=== PATIENT | female | born 1965 | race Caucasian/White ===

== ENCOUNTER 2016-08-09 12:53 | Emergency (ER) | payer BC, OTHER ==
[2016-08-09 13:22] VITALS: BP 114/76
--- NOTE | 2016-08-09 16:09 | ER Document Report ---
ED Extremity Problem, Upper - General Chief Complaint: Shoulder Pain Stated Complaint: FALL/LEFT SHOULDER PAIN Time Seen by Provider: 08/09/16 15:54 Mode of Arrival: Ambulatory Information source: Patient Cannot obtain history due to: Unstable vital signs Notes: 51-year-old female presents to ED for complaint of shoulder and clavicle pain on the left side since Tuesday when she fell asleep on the toilet and fell off. Patient is on chronic pain management for degenerative disc disease arthritis and sciatic nerve problems. She is on fentanyl patch 100 mcg and states she took 15 mg of oxycodone while waiting in the waiting room. She also has a small lump on her left side of her head where she states she hit the wall when she fell. She is alert oriented states she has not had any results of consciousness. TRAVEL OUTSIDE OF THE [place] IN LAST 30 DAYS: No - HPI Patient complains to provider of: Left, Clavicle, Shoulder Onset: Other - Tuesday Recent injury: Yes Where: Home, Indoors Quality of pain: Achy, Sharp Severity of pain: Moderate, Persistent Pain Level: 4 Context: Fall Associated symptoms: Other - Fell asleep on the toilet and fell off Exacerbated by: Movement Relieved by: Nothing Similar symptoms previously: Yes Recently seen / treated by doctor: No - Related Data Allergies/Adverse Reactions: No Known Allergies Allergy (Unverified 08/09/16 13:22) Past Medical History - General Information source: Patient - Social History Smoking Status: Current Every Day Smoker Cigarette use (# per day): Yes - 1-1/2 packs per day Chew tobacco use (# tins/day): No Smoking Education Provided: Yes - Less than 2 minutes Frequency of alcohol use: None Drug Abuse: None Occupation: none Lives with: Family Family History: Arthritis, CAD, DM, Hyperlipidemia, Hypertension, Malignancy. denies: COPD, CVA, Thyroid Disfunction Patient has suicidal ideation: No Patient has homicidal ideation: No - Past Medical History Cardiac Medical History: Reports: Hx Hypertension Pulmonary Medical History: Reports: Hx Asthma, Hx Bronchitis, Hx COPD EENT Medical History: Reports: None Neurological Medical History: Reports: None Endocrine Medical History: Reports: Hx Diabetes Mellitus Type 2 Renal/ Medical History: Reports: None Malignancy Medical History: Reports: None GI Medical History: Reports: None Musculoskeltal Medical History: Reports Hx Arthritis, Reports Hx Musculoskeletal Deformity, Reports Hx Musculoskeletal Trauma Skin Medical History: Reports None Psychiatric Medical History: Reports: Hx Anxiety Traumatic Medical History: Reports: Hx Fractures - Right ankle and fingers Infectious Medical History: Reports: None Past Surgical History: Reports: Hx Section Review of Systems - Review of Systems Constitutional: No symptoms reported EENT: No symptoms reported Cardiovascular: No symptoms reported Respiratory: No symptoms reported Gastrointestinal: No symptoms reported Genitourinary: No symptoms reported Female Genitourinary: No symptoms reported Musculoskeletal: Joint pain, Joint swelling, Muscle pain, Other - Swelling to the area of the lateral left clavicle Skin: Other - Pain and bruising to the left clavicle area Hematologic/Lymphatic: No symptoms reported Neurological/Psychological: No symptoms reported -: Yes All other systems reviewed and negative Physical Exam - Vital signs Vitals: Temp Pulse Resp BP Pulse Ox 97.8 F 110 H 18 114/76 97 08/09/16 13:22 08/09/16 13:22 08/09/16 13:22 08/09/16 13:22 08/09/16 13:22 Interpretation: Normal - General General appearance: Appears well, Alert - HEENT Head: Tenderness - Nontender not to the left scrotal Eyes: Normal Pupils: PERRL Visual warren normal: Yes Ears: Normal External canal: Normal Tympanic membrane: Normal Sinus: Normal Nasal: Normal Mouth/Lips: Normal Mucous membranes: Normal Pharynx: Normal Neck: Normal - Murmur - Respiratory Respiratory status: No respiratory distress Chest status: Tender, Pain on movement, Pain with cough, Other - Left clavicle area pain and swelling Breath sounds: Normal Chest palpation: Normal - Cardiovascular Rhythm: Regular Heart sounds: Normal auscultation Murmur: No - Abdominal Inspection: Normal Distension: No distension Bowel sounds: Normal Tenderness: Nontender Organomegaly: No organomegaly - Back Back: Normal, Nontender - Extremities General upper extremity: Normal color, Normal temperature General lower extremity: Normal inspection, Nontender, Normal color, Normal ROM , Normal temperature, Normal weight bearing. No: Anival's sign Shoulder: Tender, Limited ROM - due to pain - Neurological Neuro grossly intact: Yes Cognition: Normal Orientation: AAOx4 [place] Coma Scale Eye Opening: Spontaneous [place] Coma Scale Verbal: Oriented [place] Coma Scale Motor: Obeys Commands [place] Coma Scale Total: 15 Speech: Normal Motor strength normal: LUE, RUE, LLE, RLE Sensory: Normal - Psychological Associated symptoms: Normal affect, Normal mood - Skin Skin Temperature: Warm Skin Moisture: Dry Skin Color: Normal, Ecchymosis Irregularity with: Swelling, Tenderness Course - Vital Signs Vital signs: Temp Pulse Resp BP Pulse Ox 97.8 F 110 H 18 114/76 97 08/09/16 13:22 08/09/16 13:22 08/09/16 13:22 08/09/16 13:22 08/09/16 13:22 - Diagnostic Test Radiology reviewed: Image reviewed, Reports reviewed Procedures - Immobilization Left Shoulder Immobilizer type: Shoulder immobilizer Performed by: PCT Post-Proc Neuro Vasc Exam: Normal Alignment checked and good: Yes Discharge - Discharge Clinical Impression: Closed left clavicular fracture Qualifiers: Encounter type: initial encounter Clavicle location: shaft Fracture alignment: displaced Qualified Code(s): S42.022A - Displaced fracture of shaft of left clavicle, initial encounter for closed fracture Condition: Stable Disposition: HOME, SELF-CARE Additional Instructions: Fractured Clavicle You have a broken collarbone (clavicle). This usually heals in three to six weeks, depending on the age of the patient and the severity of the fracture. Even badly crooked collarbone fractures are usually not "set" or operated on, just protected until healing is complete. Usual initial treatment is rest and ice packs. A clavicle strap is placed for most collarbone fractures, but some do better with only a sling. The physician will match the treatment to your fracture. If a clavicle strap was fitted, keep it in place. It may be removed for bathing or for washing the strap after the first week. You may adjust the tightness of the strap with the Velcro strips. It should not be so tight that the hands swell or go numb. No heavy lifting, work requiring the arms to be above the head, or school P.E. until healing is complete! Call the doctor or return at once if pain or swelling become severe, or if numbness develops in either arm. Sling to be Used You are to use a sling. This is to rest the area, and to prevent it from hanging downward. Use this sling for at least 48 hours (or longer if so instructed by the doctor). Some types of splints will break if not supported by the sling, so the sling must be used as long as the splint. Ice can be placed inside the sling over the injured area. Once you remove the sling, you should not encounter pain when you use the arm and hand. If you do feel pain beneath the cast or splint, you must continue use of the sling. Continue with your current pain medication. Ice Packs Apply ice packs frequently against the painful area. Many different schedules are recommended, such as "20 minutes on, 20 minutes off" or "one hour ice, two hours rest." If you need to work, you may need to go longer between ice treatments. You should plan to have the area ice packed AT LEAST one fourth of the time. The ice should be applied over the wrap, tape, or splint, or over a layer of cloth -- not directly against the skin. Some ice bags have a built-in cloth and can be put directly on the skin. FOLLOW-UP CARE: If you have been referred to a physician for follow-up care, call the physician s office for an appointment as you were instructed or within the next two days. If you experience worsening or a significant change in your symptoms, notify the physician immediately or return to the Emergency Department at any time for re-evaluation. Follow up with your primary doctor tomorrow. Call your orthopedic doctor tomorrow to schedule a follow-up appointment. Referrals: GEOFF SANCHEZ, DO [Primary Care Provider] - Follow up as needed
--- NOTE | 2016-08-09 16:49 | RADIOLOGY REPORT (SQ) ---
EXAM DESCRIPTION: SHOULDER LEFT 2 OR MORE VIEWS COMPLETED DATE/TIME: 08/09/2016 4:33 pm REASON FOR STUDY: pain fall COMPARISON: None. NUMBER OF VIEWS: Three views. TECHNIQUE: Internal rotation, external rotation, and Y view images acquired of the left shoulder. LIMITATIONS: None. FINDINGS: MINERALIZATION: Normal. BONES: Acute fracture left mid 3rd clavicle with over riding of fracture fragments by 2 cm. Inferior displacement of the distal clavicle fragment with respect to the proximal fragment. Scapula, humeral head, left upper ribs are intact. JOINTS: No glenohumeral dislocation. No widening of the acromioclavicular joint VISUALIZED LUNGS AND RIBS: No pneumothorax. No rib fracture. SOFT TISSUES: No radiopaque foreign body. OTHER: No other significant finding. IMPRESSION: Acute fracture left mid 3rd clavicle with over riding of clavicle fragments TECHNICAL DOCUMENTATION: JOB ID: [id number] [employer]- All Rights Reserved
--- NOTE | 2016-08-09 16:50 | RADIOLOGY REPORT (SQ) ---
EXAM DESCRIPTION: CLAVICLE LEFT COMPLETED DATE/TIME: 08/09/2016 4:33 pm REASON FOR STUDY: PAIN, FALL COMPARISON: None. NUMBER OF VIEWS: Two views. TECHNIQUE: Frontal and angled images were acquired of the left clavicle. LIMITATIONS: None. FINDINGS: MINERALIZATION: Normal. BONES: Acute fracture left mid 3rd clavicle with over riding of fracture fragments by about 2 cm. Di stal clavicle fragment is inferiorly displaced with respect to the medial clavicle. SOFT TISSUES: No obvious swelling or foreign body. OTHER: Pulmonary fibrosis both lung apices IMPRESSION: Acute fracture left mid 3rd clavicle, with mild inferior displacement of the lateral or distal clavicle fragment. TECHNICAL DOCUMENTATION: JOB ID: [id number] [employer]- All Rights Reserved
== END 2016-08-09 18:23 | disposition home or self-care (01) ==
LOC: ER 12:53
DX: S42.022A Displaced fracture of shaft of left clavicle, initial encounter for closed fracture (principal); R22.0 Localized swelling, mass and lump, head; W18.12XA Fall from or off toilet with subsequent striking against object, initial encounter; Y93.84 Activity, sleeping; Y92.002 Bathroom of unspecified non-institutional (private) residence as the place of occurrence of the external cause; I10 Essential (primary) hypertension; E11.9 Type 2 diabetes mellitus without complications; J44.9 Chronic obstructive pulmonary disease, unspecified; M19.90 Unspecified osteoarthritis, unspecified site; G89.29 Other chronic pain; Z79.891 Long term (current) use of opiate analgesic; F17.210 Nicotine dependence, cigarettes, uncomplicated; Z71.6 Tobacco abuse counseling
CPT/HCPCS: 99283; 73000; 73030; L3650

== ENCOUNTER 2017-09-02 08:22 | Day surgery (SDC) | payer OTHER ==
[2017-09-02] MEDS ORDERED: MEPERIDINE HCL/PF INJ 25 MG/1 ML DISP.SYRIN IV PRN (09:30)
[2017-09-02] MEDS ORDERED: PROMETHAZINE HCL INJ 25 MG/1 ML VIAL IV PRN ×2 (09:30)
[2017-09-02] MEDS ORDERED: OXYCODONE-ACETAMINOPHEN 5-325 MG TABLET PO PRN ×2 (09:30)
[2017-09-02] MEDS ORDERED: FENTANYL CITRATE INJ/PF 100 MCG/2 ML AMPUL IV PRN ×3 (09:30)
[2017-09-02] MEDS ORDERED: DIPHENHYDRAMINE HCL 50 MG/ML VIAL IV PRN (09:30)
[2017-09-02] MEDS ORDERED: MIDAZOLAM 2 MG/2 ML INJ ONE ×2 (09:52→11:06)
[2017-09-02] MEDS ORDERED: PROPOFOL INJ 200 MG/20 ML VIAL IV ONE ×2 (09:53→11:06)
--- NOTE | 2017-09-02 11:04 | Operative Report ---
Operative Report DATE OF SURGERY: 09/02/17 Operative Report: The risks, benefits and alternatives are explained to the patient in detail patient is taken back to the OR, and placed in a left lateral decubital position time out is called, Propofol administered An Olympus videoscope is inserted into the patient rectum it is advanced to the cecum this is confirmed by the IC valve, and the appendiceal orifice the scope is then slowly withdrawn, tubular and luminal views are obtained throughout the colon retroflexion is done patient also had an EGD done, in the same setting PREOPERATIVE DIAGNOSIS: colorectal cancer screening. nausea and vomiting POSTOPERATIVE DIAGNOSIS: gastritis biopsy to rule out H.pylori. hiatal hernia. diverticulosis. internal hemorrhodis. right side colon inflammation s /p biopsy OPERATION: colonoscopy with biopsy. EGD with biopsy SURGEON: JEB MORENO ANESTHESIA: LMAC TISSUE REMOVED OR ALTERED: as noted above COMPLICATIONS: none ESTIMATED BLOOD LOSS: none INTRAOPERATIVE FINDINGS: as noted above. no active bleeding is noted PROCEDURE: patient tolerated her procedure well did not have any post procedure complications patient is discharged in good condition discharge date: 09/02/17 discharged activity and diet : regular patient is instructed to call the office or go to ED if needed will wait on biopsy will see patient in follow up in 2-3 weeks
[2017-09-02] MEDS ORDERED: LIDOCAINE 2% INJ-PF (20 MG/ML) 10 ML AMPUL ONE (11:05)
[2017-09-02] MEDS ORDERED: ONDANSETRON HCL INJ/PF 4 MG/2 ML SDV ONE (11:06)
[2017-09-02] MEDS ORDERED: DEXAMETHASONE SOD PHOSPHATE INJ 4 MG/1 ML VIAL ONE (11:06)
[2017-09-02] MEDS ORDERED: ACETAMINOPHEN 1,000 MG/100 ML RTUPB IV ONE (11:06)
[2017-09-02] MEDS ORDERED: FENTANYL CITRATE INJ/PF 100 MCG/2 ML AMPUL ONE (11:06)
[2017-09-02 11:51] VITALS: BP 134/71
== END 2017-09-02 11:50 | disposition home or self-care (01) ==
LOC: OROUT 08:22
PROVIDERS: ATTEND Internal Medicine Gastroenterology
DX: Z12.11 Encounter for screening for malignant neoplasm of colon (principal); K57.30 Diverticulosis of large intestine without perforation or abscess without bleeding; K62.89 Other specified diseases of anus and rectum; K29.50 Unspecified chronic gastritis without bleeding; K44.9 Diaphragmatic hernia without obstruction or gangrene; K64.8 Other hemorrhoids; K52.9 Noninfective gastroenteritis and colitis, unspecified; K21.9 Gastro-esophageal reflux disease without esophagitis; I10 Essential (primary) hypertension; J44.9 Chronic obstructive pulmonary disease, unspecified; F17.210 Nicotine dependence, cigarettes, uncomplicated; Z79.899 Other long term (current) drug therapy; Z79.51 Long term (current) use of inhaled steroids
CPT/HCPCS: 43239; 45380; 36415; 84132; 81025; 88342 ×2; 88305 ×2; 88313 ×2; J2250; J1100; J3010; J2405; J2704; J3490; J0131; 813

== ENCOUNTER → 2017-09-14 | Outpatient (CLI) | payer OTHER ==
--- NOTE | 2017-09-15 12:16 | WOMENS IMAGING REPORT ---
EXAM DESCRIPTION: BILAT SCREENING MAMMO W/CAD COMPLETED DATE/TIME: 09/14/2017 8:23 am REASON FOR STUDY: ROUTINE BILATERAL SCREENING;Z12.31 Z12.31 ENCNTR SCREEN MAMMOGRAM FOR MALIGNANT N EOPLASM OF DALE COMPARISON: None. TECHNIQUE: Standard craniocaudal and mediolateral oblique views of each breast recorded using [employer] l acquisition. LIMITATIONS: None. FINDINGS: Findings present which are benign by mammographic criteria. No suspicious masses, calcifi cations or architectural distortion. Pertinent benign findings: Benign bilateral breast skin calcifications and right breast benign intram ammary lymph node Read with the assistance of CAD. .[facility] - R2 Cenova Version 1.3 .[facility] Imaging - R2 Cenova Version 1.3 .[facility] - R2 Cenova Version 2.4 .[facility] [place] - R2 Cenova Version 2.4 .[facility] - R2 [employer] Version 9.2 Benign mammographic findings may include one or more of the following: Smooth masses, popcorn/rim/co arse calcifications, asymmetries, post-procedure changes, and lesions with long-standing stability. IMPRESSION: BENIGN MAMMOGRAPHIC FINDINGS. BIRADS 2 BREAST DENSITY: b. There are scattered areas of fibroglandular density. BIRAD: 2 BENIGN FINDING(S) RECOMMENDATION: ROUTINE SCREENING Please continue yearly bilateral screening in September 2018. Consider bilateral screening tomosynthesi s COMMENT: The patient has been notified of the results by letter per MQSA requirements. Additional no tification policies are in place for contacting patient with suspicious or incomplete findings. Quality ID #[id number]: The [employer] recommends an annual screening mammogram for women aged 40 years or over. This facility utilizes a reminder system to ensure that all patients receive reminder letters, and/or direct phone calls for appointments. This includes reminders for routine scr eening mammograms, diagnostic mammograms, or other Breast Imaging Interventions when appropriate. Th is patient will be placed in the appropriate reminder system. The [employer] (ACR) has developed recommendations for screening MRI of the breast s in certain patient populations, to be used in conjunction with mammography. Breast MRI surveillanc e may be appropriate for women with more than 20% lifetime risk of developing breast cancer as deter mined by genetic testing, significant family history of the disease, or history of mantle radiation f or Hodgkins Disease. ACR Practice Guidelines 2008. TECHNICAL DOCUMENTATION: FINDING NUMBER: (1) ASSESSMENT: (1) JOB ID: [id number] [employer]- All Rights Reserved Reading location - IP/workstation name: [email or web address]
== END ==
LOC: WI 07:30
PROVIDERS: ATTEND Family Medicine
DX: Z12.31 Encounter for screening mammogram for malignant neoplasm of breast (principal)
CPT/HCPCS: 77067

== ENCOUNTER 2017-10-10 14:11 | Emergency (ER) | payer OTHER ==
--- NOTE | 2017-10-10 15:06 | ER Document Report ---
ED Medical Screen (RME) - General Chief Complaint: Vomiting Stated Complaint: VOMITING Time Seen by Provider: 10/10/17 15:03 Notes: 52-year-old female to emergency department for evaluation of nausea, vomiting, dehydration. Patient has not felt good for approximately 1 week. Was sent over here to be evaluated by her primary care doctor. On arrival to the emergency department blood pressure was low and heart rate elevated. Patient thinks that she is just "dehydrated". Been having intermittent abdominal pain and nausea and vomiting for several weeks now. I have greeted and performed a rapid initial assessment of this patient. A comprehensive ED assessment and evaluation of the patient, analysis of test results and completion of the medical decision making process will be conducted by additional ED providers. TRAVEL OUTSIDE OF THE [place] IN LAST 30 DAYS: No - Related Data Allergies/Adverse Reactions: No Known Allergies Allergy (Verified 10/10/17 14:11) Past Medical History - General Information source: Patient - Past Medical History Cardiac Medical History: Reports: Hx Hypertension Denies: Hx Coronary Artery Disease, Hx Heart Attack Pulmonary Medical History: Reports: Hx Asthma - Pt denies 08/2017, Hx Bronchitis , Hx COPD Denies: Hx Pneumonia Neurological Medical History: Denies: Hx Cerebrovascular Accident, Hx Seizures Endocrine Medical History: Reports: Hx Diabetes Mellitus Type 2 Renal/ Medical History: Denies: Hx Peritoneal Dialysis Musculoskeltal Medical History: Reports Hx Arthritis - DJD and arthritis in back , Reports Hx Musculoskeletal Deformity, Reports Hx Musculoskeletal Trauma Psychiatric Medical History: Reports: Hx Anxiety Traumatic Medical History: Reports: Hx Fractures - Right ankle and fingers Past Surgical History: Reports: Hx Section - Immunizations Hx Diphtheria, Pertussis, Tetanus Vaccination: Yes - "It's been a while" History of Influenza Vaccine for 11/2016 - 04/2017 Season: No Review of Systems - Review of Systems Notes: Review of systems positive for the following: Nausea, vomiting, abdominal pain, dehydration Physical Exam - Vital signs Vitals: Temp Pulse Resp BP Pulse Ox 97.7 F 113 H 16 86/57 L 95 10/10/17 14:22 10/10/17 14:22 10/10/17 14:22 10/10/17 14:22 10/10/17 14:22 Interpretation: Hypotensive, Tachycardic - Abdominal Inspection: Normal Distension: No distension Bowel sounds: Normal Tenderness: Tender - Gastric tenderness Organomegaly: No organomegaly Course - Vital Signs Vital signs: Temp Pulse Resp BP Pulse Ox 97.7 F 113 H 16 86/57 L 95 10/10/17 14:22 10/10/17 14:22 10/10/17 14:22 10/10/17 14:22 10/10/17 14:22 Doctor's Discharge - Discharge Referrals: GEOFF SANCHEZ DO [Primary Care Provider] - Follow up as needed
[2017-10-10 16:14] LABS: ABSOLUTE BASOPHILS # (AUTO) 0.1 10^3/uL (0.0-0.2); ABSOLUTE EOSINOPHILS # (AUTO) 0.1 10^3/uL (0.0-0.6); ABSOLUTE LYMPHOCYTES (AUTO) 2.1 10^3/uL (0.5-4.7); ABSOLUTE MONOCYTES (AUTO) 0.9 10^3/uL (0.1-1.4); ABSOLUTE NEUT (AUTO) 10.2 10^3/uL (1.7-8.2); BASOPHILS % (AUTO) 1.1 % (0-2); EOSINOPHILS % (AUTO) 1.1 % (0-6); HEMATOCRIT 36.5 % (36.0-47.0); HEMOGLOBIN 11.8 g/dL (12.0-15.5); LYMPHOCYTES % (AUTO) 15.3 % (13-45); MEAN CORPUSCULAR HEMOGLOBIN 25.5 pg (27.0-33.4); MEAN CORPUSCULAR HGB CONC 32.2 g/dL (32.0-36.0); MEAN CORPUSCULAR VOLUME 79 fl (80-97); MONOCYTES % (AUTO) 7.1 % (3-13); PLATELET COUNT 775 10^3/uL (150-450); RED BLOOD COUNT 4.62 10^6/uL (3.72-5.28); RED CELL DISTRIBUTION WIDTH 19.6 % (11.5-14.0); SEGMENTED NEUTROPHILS % (AUTO) 75.4 % (42-78); TOTAL CELLS COUNTED % (AUTO) 100 %; WHITE BLOOD COUNT 13.4 10^3/uL (4.0-10.5)
[2017-10-10 16:20] LABS: AMORPHOUS SEDIMENT,URINE TRACE /HPF; APPEARANCE,URINE CLOUDY; BILIRUBIN,URINE NEGATIVE (NEGATIVE); COLOR,URINE YELLOW; GLUCOSE, URINE NEGATIVE (NEGATIVE); KETONES,URINE NEGATIVE (NEGATIVE); LEUKOCYTE ESTERASE,URINE SMALL (NEGATIVE); NITRITE,URINE NEGATIVE (NEGATIVE); PROTEIN,URINE 30 mg/dL (NEGATIVE); URINE SPECIFIC GRAVITY 1.017; UROBILINOGEN,URINE NEGATIVE mg/dL (<2.0)
[2017-10-10 16:23] LABS: INTERNATIONAL RATION (INR) 0.97; PROTHROMBIN TIME 13.4 SEC (11.4-15.4)
[2017-10-10 16:24] LABS: PARTIAL THROMBOPLASTIN TIME 33.3 SEC (23.5-35.8)
[2017-10-10 17:59] LABS: ALANINE AMINOTRANSFERASE 19 U/L (9-52); ALBUMIN 4.3 g/dL (3.5-5.0); ALKALINE PHOSPHATASE 67 U/L (38-126); AMYLASE 118 U/L (30-110); ANION GAP 18 (5-19); ASPARTATE AMINO TRANSFERASE 12 U/L (14-36); BILIRUBIN,DIRECT 0.4 mg/dL (0.0-0.4); BILIRUBIN,TOTAL 0.4 mg/dL (0.2-1.3); BLOOD UREA NITROGEN 54 mg/dL (7-20); CALCIUM 10.3 mg/dL (8.4-10.2); CARBON DIOXIDE 23 mmol/L (22-30); CHLORIDE 94 mmol/L (98-107); GLUCOSE 110 mg/dL (75-110); LIPASE 375.9 U/L (23-300); POTASSIUM 4.5 mmol/L (3.6-5.0); SODIUM 134.8 mmol/L (137-145); TOTAL PROTEIN 7.5 g/dL (6.3-8.2)
[2017-10-10] MEDS ORDERED: RINGERS SOLUTION,LACTATED 2,000 ML IV ONE (18:26)
--- NOTE | 2017-10-10 19:29 | EKG REPORT ---
SEVERITY:- ABNORMAL ECG - SINUS TACHYCARDIA ST ELEVATION SUGGESTS NORMAL VARIANT : Confirmed by: Jay Donaldson MD 10-Oct-2017 19:29:15
--- NOTE | 2017-10-10 19:59 | ER Document Report ---
ED General - General Chief Complaint: Vomiting Stated Complaint: VOMITING Time Seen by Provider: 10/10/17 15:03 Notes: Patient is a 52-year-old female with past medical history of opiate dependence for chronic pain, hypertension, gastritis, who presents with nausea, vomiting, lightheadedness and near syncope. The patient reports that for the past 3 weeks she has had minimal appetite, has had frequent episodes of nausea and vomiting. She says she had one episode of vomiting which contained a small amount of blood but has not had any blood in her vomitus today. She saw her primary care physician and was referred to the emergency department today given her degree of lightheadedness and low blood pressure. She denies any history of similar symptoms in the past. She did report that she had an endoscopy and colonoscopy within the last 1 month which revealed gastric ulcers. She takes asthma process all but does continue to take BC powders and smoke. She describes the pain in her abdomen as a burning, aching pain to her upper abdomen. She notes that eating worsens this pain dramatically. Nothing improves the pain. She denies any melena or hematochezia. She denies any chest pain or shortness of breath. She does note a significant weight loss over the approximately past 1-2 years. TRAVEL OUTSIDE OF THE [place] IN LAST 30 DAYS: No - Related Data Allergies/Adverse Reactions: No Known Allergies Allergy (Verified 10/10/17 14:11) Past Medical History - General Information source: Patient - Social History Smoking Status: Current Every Day Smoker Frequency of alcohol use: None Drug Abuse: None Lives with: Alone Family History: Arthritis, Malignancy, CAD, DM, Hyperlipidemia, Hypertension Patient has suicidal ideation: No Patient has homicidal ideation: No - Past Medical History Cardiac Medical History: Reports: Hx Hypertension Denies: Hx Coronary Artery Disease, Hx Heart Attack Pulmonary Medical History: Reports: Hx Asthma - Pt denies 08/2017, Hx Bronchitis , Hx COPD Denies: Hx Pneumonia Neurological Medical History: Denies: Hx Cerebrovascular Accident, Hx Seizures Endocrine Medical History: Reports: Hx Diabetes Mellitus Type 2 Renal/ Medical History: Denies: Hx Peritoneal Dialysis Musculoskeletal Medical History: Reports Hx Arthritis - DJD and arthritis in back , Reports Hx Musculoskeletal Deformity, Reports Hx Musculoskeletal Trauma Psychiatric Medical History: Reports: Hx Anxiety Traumatic Medical History: Reports: Hx Fractures - Right ankle and fingers Past Surgical History: Reports: Hx Section - Immunizations Hx Diphtheria, Pertussis, Tetanus Vaccination: Yes - "It's been a while" Review of Systems - Review of Systems Notes: Constitutional: Negative for fever. HENT: Negative for sore throat. Eyes: Negative for visual changes. Cardiovascular: Positive for lightheadedness Respiratory: Negative for shortness of breath. Gastrointestinal: Positive for abdominal pain and vomiting Genitourinary: Negative for dysuria. Musculoskeletal: Negative for back pain. Skin: Negative for rash. Neurological: Negative for headaches, weakness or numbness. 10 point ROS negative except as marked above and in HPI. Physical Exam - Vital signs Vitals: Temp Pulse Resp BP Pulse Ox 97.7 F 113 H 16 86/57 L 95 10/10/17 14:22 10/10/17 14:22 10/10/17 14:22 10/10/17 14:22 10/10/17 14:22 Interpretation: Hypotensive, Tachycardic Notes: PHYSICAL EXAMINATION: GENERAL: Appears older than stated age but in no acute distress HEAD: Atraumatic, normocephalic. EYES: Pupils equal round and reactive to light, extraocular movements intact, sclera anicteric, conjunctiva are normal. ENT: nares patent, oropharynx clear without exudates. Moderately dry mucous membranes. NECK: Normal range of motion, supple without lymphadenopathy LUNGS: Breath sounds clear to auscultation bilaterally and equal. No wheezes rales or rhonchi. HEART: Regular tachycardia without murmurs ABDOMEN: Soft, mild epigastric abdominal tenderness otherwise no focal areas of tenderness, normoactive bowel sounds. No guarding, no rebound. No masses appreciated. EXTREMITIES: Normal range of motion, no pitting or edema. No cyanosis. NEUROLOGICAL: No focal neurological deficits. Moves all extremities spontaneously and on command. PSYCH: Normal mood, normal affect. SKIN: Warm, Dry, normal turgor, no rashes or lesions noted. Course - Re-evaluation Re-evalutation: 10/10/17 20:01 Patient presents with hypotension, lightheadedness, orthostatic near syncope. Patient's initial blood pressures are in the 80s systolic, she has associated tachycardia and obvious signs of dehydration on examination including dry oral mucosa, sunken eyes. She does have prerenal azotemia on her laboratories although I have no old for comparison. Patient has had a 40 pound weight loss over the course of the past 1-2 years. She has also had 3-4 weeks of decreased appetite, nausea and intermittent vomiting. Her renal dysfunction precludes use of IV contrast but given her her weight loss, persistent nausea and vomiting will proceed with a CT of the abdomen pelvis to further evaluate. Of note the patient had an endoscopy and colonoscopy within the past 1 month which showed gastric ulcers but no additional findings. 10/10/17 22:50 CT scan abdomen pelvis is unremarkable. Right upper quadrant ultrasound likewise unremarkable. Suspect that much of patient's symptoms are secondary to the gastric ulcers that were identified on endoscopy earlier this month. The patient has been started on Carafate, famotidine, Zofran as needed for nausea. Dietary recommendations have been provided. Patient feels much improved after receiving IV fluids. Home pain medications have been provided. At this time will discharge with return precautions and follow-up recommendations. Verbal discharge instructions given a the bedside and opportunity for questions given. Medication warnings reviewed. Patient is in agreement with this plan and has verbalized understanding of return precautions and the need for primary care follow-up in the next 24-72 hours. - Vital Signs Vital signs: Temp Pulse Resp BP Pulse Ox 98.9 F 85 18 104/86 H 98 10/10/17 23:14 10/10/17 23:14 10/10/17 23:14 10/10/17 23:14 10/10/17 23:14 - Laboratory Result Diagrams: 10/10/17 15:58 10/10/17 17:30 Laboratory results interpreted by me: 10/10/17 10/10/17 10/10/17 15:58 15:58 17:30 WBC 13.4 H Hgb 11.8 L MCV 79 L MCH 25.5 L RDW 19.6 H Plt Count 775 H Absolute Neutrophils 10.2 H Sodium 134.8 L Chloride 94 L BUN 54 H Creatinine 1.96 H Est GFR ( Amer) 32 L Est GFR (Non-Af Amer) 27 L Calcium 10.3 H AST 12 L Amylase 118 H Lipase 375.9 H Urine Protein 30 H Ur Leukocyte Esterase SMALL H - Diagnostic Test Radiology reviewed: Reports reviewed - EKG Interpretation by Me Additional EKG results interpreted by me: 10/11/17 04:13 Sinus tachycardia. Rate 104. Normal variant ST elevation. QTC 437. Discharge - Discharge Clinical Impression: Dehydration, Near syncope, Prerenal azotemia Nausea and vomiting Qualifiers: Vomiting type: unspecified Vomiting Intractability: non-intractable Qualified Code(s): R11.2 - Nausea with vomiting, unspecified Condition: Stable Disposition: HOME, SELF-CARE Additional Instructions: Your seen today for lightheadedness, low blood pressure, nausea and vomiting, and dehydration. Your labs show that your kidney function has deteriorated due to dehydration which should normalize after receiving the fluids you have gotten here in the emergency department. You need to have her kidney function rechecked by your doctor within the next [address] scan and ultrasound of your abdomen are normal. I anticipate that the frequent nausea and vomiting that your having as well as abdominal pain is related to the gastric ulcers that were identified by her GI physician. Please begin taking famotidine 40 mg in the morning and 40 mg at night. Please also take Carafate that has been prescribed before each meal. Please return to emergency department immediately if you have worsening of your pain, shortness of breath, vomiting, become unable to exert yourself due to pain or difficulty breathing, you pass out, or have any pain that radiates into your arms, jaw, or back. Please also return if you have any additional symptoms that are concerning to you. As we have discussed, the most important thing is lifestyle changes. You need to avoid smoking, sodas, tea, coffee, alcohol, spicy foods, and acidic foods such as citrus fruits, tomato based products, berries, and most fruit juices. Prescriptions: Famotidine 40 mg PO BID #60 tablet Sucralfate [Carafate 1 gm Tablet] 1 gm PO ACHS #120 tablet Referrals: GEOFF SANCHEZ DO [Primary Care Provider] - 10/11/17
--- NOTE | 2017-10-10 21:31 | RADIOLOGY REPORT (SQ) ---
EXAM DESCRIPTION: U/S ABDOMEN LIMITED W/O DOP COMPLETED DATE/TIME: 10/10/2017 9:23 pm REASON FOR STUDY: persistent vomiting COMPARISON: None. TECHNIQUE: Dynamic and static grayscale images acquired of the abdomen and recorded on PACS. Additio nal selected color Doppler and spectral images recorded. LIMITATIONS: None. FINDINGS: PANCREAS: No masses. Visualized pancreatic duct normal caliber. LIVER: No masses. Echotexture normal. LIVER VASCULATURE: Normal directional flow of the main portal vein and hepatic veins. GALLBLADDER: No stones. Normal wall thickness. No pericholecystic fluid. ULTRASOUND-DETECTED GRAY'S SIGN: Negative. INTRAHEPATIC DUCTS AND COMMON DUCT: CBD and intrahepatic ducts normal caliber. No filling defects. INFERIOR VENA CAVA: Normal flow. AORTA: No aneurysm identified. RIGHT KIDNEY: Normal size. Normal echogenicity. No solid or suspicious masses. No hydronephros is. No calcifications. PERITONEAL AND RIGHT PLEURAL SPACE: No ascites or effusions. OTHER: No other significant findings. IMPRESSION: NO ACUTE FINDINGS. TECHNICAL DOCUMENTATION: JOB ID: [id number] 2010 [email or web address]- All Rights Reserved Reading location - IP/workstation name: [email or web address]
[2017-10-10] MEDS ORDERED: OXYCODONE HCL IR 5 MG TABLET PO ONE (22:14)
[2017-10-10] MEDS ORDERED: HYDROXYZINE PAMOATE 25 MG CAPSULE PO ONE (22:14)
--- NOTE | 2017-10-10 22:37 | RADIOLOGY REPORT (SQ) ---
EXAM DESCRIPTION: CT ABD/PELVIS NO ORAL OR IV COMPLETED DATE/TIME: 10/10/2017 10:10 pm REASON FOR STUDY: eval nausea, vomiting, weight loss COMPARISON: None. TECHNIQUE: CT scan of the abdomen and pelvis performed without intravenous or oral contrast. Images reviewed with lung, soft tissue, and bone windows. Reconstructed coronal and sagittal MPR images revi ewed. All images stored on PACS. All CT scanners at this facility use dose modulation, iterative reconstruction, and/or weight based d osing when appropriate to reduce radiation dose to as low as reasonably achievable (ALARA). [facility]: Dose Right [facility]: CareDose [facility]: Dose Right [facility]: Teradose 4D [facility]: [email or web address] RADIATION DOSE: CT Rad equipment meets quality standard of care and radiation dose reduction techniq ues were employed. CTDIvol: 4.8 mGy. DLP: 241 mGy-cm.mGy. LIMITATIONS: None. FINDINGS: LOWER CHEST: No significant findings. No nodules or infiltrates. NON-CONTRASTED LIVER, SPLEEN, ADRENALS: Evaluation limited by lack of IV contrast. No identified sign ificant masses. PANCREAS: No masses. No peripancreatic inflammatory changes. GALLBLADDER: No calcified stones. No inflammatory changes to suggest cholecystitis. RIGHT KIDNEY AND URETER: No cysts identified. No solid masses. No calcified stones. No hydronephrosis or hydroureter. LEFT KIDNEY AND URETER: No cysts identified. No solid masses. No calcified stones. No hydronephrosis or hydroureter. AORTA AND RETROPERITONEUM: No aneurysm. No retroperitoneal masses or adenopathy. BOWEL AND PERITONEAL CAVITY: No obvious masses or inflammatory changes. No free fluid. APPENDIX: Normal. PELVIS, BLADDER, AND ABDOMINAL WALL:No abnormal masses. No free fluid. Unremarkable bladder. BONES: No acute findings. OTHER: No other significant finding. IMPRESSION: NO ACUTE FINDINGS. TECHNICAL DOCUMENTATION: JOB ID: [id number] [place]-72 Quality ID # [id number]: Final reports with documentation of one or more dose reduction techniques (e.g., Au tomated exposure control, adjustment of the mA and/or kV according to patient size, use of iterative reconstruction technique) 2010 [employer]- All Rights Reserved Reading location - IP/workstation name: [email or web address]
[2017-10-10] MEDS ORDERED: METOCLOPRAMIDE HCL ORAL SOLN 10 MG/10 ML UDCUP PO ONE (22:50)
[2017-10-10] MEDS ORDERED: MAG HYDROX/AL HYDROX/SIMETH SUSP 30 ML UDCUP PO ONE (22:50)
[2017-10-10] MEDS ORDERED: LIDOCAINE 2% VISCOUS SOLN 20 ML UDCUP PO ONE (22:50)
[2017-10-10] MEDS ORDERED: FAMOTIDINE 20 MG TABLET PO ONE (22:50)
[2017-10-10 23:15] VITALS: BP 104/86
== END 2017-10-10 23:23 | disposition home or self-care (01) ==
LOC: ER 14:11
DX: E86.0 Dehydration (principal); R55 Syncope and collapse; R79.89 Other specified abnormal findings of blood chemistry; G89.29 Other chronic pain; R11.2 Nausea with vomiting, unspecified; I10 Essential (primary) hypertension
CPT/HCPCS: 93005; 99285; 36415; 82150; 83690; 85025; 85610; 85730; 80053; 81001; 84484; 76705; 74176; 93010; J3490; J7120; 96360

== ENCOUNTER 2017-10-30 22:41 | Emergency (ER) | payer OTHER ==
[2017-10-30 23:16] VITALS: BP 154/107
--- NOTE | 2017-10-30 23:57 | ER Document Report ---
ED Medical Screen (RME) - General Chief Complaint: Nausea Stated Complaint: OVER HEATED Time Seen by Provider: 10/30/17 23:54 Notes: 52-year-old female presented to ED for complaint of feeling overheated and nauseated. Her blood pressure is triples over triples. She states she has not taken her blood pressure medication in 2 weeks because she was told to not take it because she followed up with a doctor because her blood pressure was too low. She states she has not been back to the doctor so she has not taken her blood pressure or her blood pressure Medication. She states today they were cooking out and she ate onions and stuff and did not throw up but she just felt very nauseated and overheated. Patient is alert and oriented respirations regular unlabored speaking in full sentences. Patient states she did take her blood pressure medications that is in her purse after they took her blood pressure earlier. I have greeted and performed a rapid initial assessment of this patient. A comprehensive ED assessment and evaluation of the patient, analysis of test results and completion of medical decision making process will be conducted by an additional ED providers. TRAVEL OUTSIDE OF THE [place] IN LAST 30 DAYS: No - Related Data Allergies/Adverse Reactions: No Known Allergies Allergy (Verified 10/30/17 22:48) Past Medical History - Social History Chew tobacco use (# tins/day): No Drug Abuse: None - Past Medical History Cardiac Medical History: Reports: Hx Hypertension Denies: Hx Coronary Artery Disease, Hx Heart Attack Pulmonary Medical History: Reports: Hx Asthma - Pt denies 08/2017, Hx Bronchitis , Hx COPD Denies: Hx Pneumonia Neurological Medical History: Denies: Hx Cerebrovascular Accident, Hx Seizures Endocrine Medical History: Reports: Hx Diabetes Mellitus Type 2 Renal/ Medical History: Denies: Hx Peritoneal Dialysis Musculoskeltal Medical History: Reports Hx Arthritis - DJD and arthritis in back , Reports Hx Musculoskeletal Deformity, Reports Hx Musculoskeletal Trauma Psychiatric Medical History: Reports: Hx Anxiety Traumatic Medical History: Reports: Hx Fractures - Right ankle and fingers Past Surgical History: Reports: Hx Section - Immunizations Hx Diphtheria, Pertussis, Tetanus Vaccination: Yes - "It's been a while" History of Influenza Vaccine for 11/2016 - 04/2017 Season: No Physical Exam - Vital signs Vitals: Temp Pulse Resp BP Pulse Ox 98.5 F 103 H 18 154/107 H 98 10/30/17 23:14 10/30/17 23:14 10/30/17 23:14 10/30/17 23:14 10/30/17 23:14 Course - Vital Signs Vital signs: Temp Pulse Resp BP Pulse Ox 98.5 F 103 H 18 154/107 H 98 10/30/17 23:14 10/30/17 23:14 10/30/17 23:14 10/30/17 23:14 10/30/17 23:14 Doctor's Discharge - Discharge Referrals: GEOFF SANCHEZ DO [Primary Care Provider] - Follow up as needed
[2017-10-31 00:24] LABS: ABSOLUTE BASOPHILS # (AUTO) 0.1 10^3/uL (0.0-0.2); ABSOLUTE LYMPHOCYTES (AUTO) 1.1 10^3/uL (0.5-4.7); ABSOLUTE MONOCYTES (AUTO) 0.8 10^3/uL (0.1-1.4); ABSOLUTE NEUT (AUTO) 10.1 10^3/uL (1.7-8.2); APPEARANCE,URINE CLEAR; BASOPHILS % (AUTO) 0.7 % (0-2); BILIRUBIN,URINE NEGATIVE (NEGATIVE); COLOR,URINE YELLOW; EOSINOPHILS % (AUTO) 0.2 % (0-6); GLUCOSE, URINE NEGATIVE (NEGATIVE); HEMOGLOBIN 10.5 g/dL (12.0-15.5); KETONES,URINE NEGATIVE (NEGATIVE); LYMPHOCYTES % (AUTO) 9.2 % (13-45); MEAN CORPUSCULAR HEMOGLOBIN 25.8 pg (27.0-33.4); MEAN CORPUSCULAR HGB CONC 31.7 g/dL (32.0-36.0); MEAN CORPUSCULAR VOLUME 81 fl (80-97); MONOCYTES % (AUTO) 6.7 % (3-13); PLATELET COUNT 539 10^3/uL (150-450); RED BLOOD COUNT 4.06 10^6/uL (3.72-5.28); RED CELL DISTRIBUTION WIDTH 20.8 % (11.5-14.0); SEGMENTED NEUTROPHILS % (AUTO) 83.2 % (42-78); TOTAL CELLS COUNTED % (AUTO) 100 %; URINE SPECIFIC GRAVITY 1.016; WHITE BLOOD COUNT 12.1 10^3/uL (4.0-10.5)
[2017-10-31 00:25] LABS: LEUKOCYTE ESTERASE,URINE TRACE (NEGATIVE); NITRITE,URINE NEGATIVE (NEGATIVE); PROTEIN,URINE 100 mg/dL (NEGATIVE); UROBILINOGEN,URINE NEGATIVE mg/dL (<2.0)
[2017-10-31 00:32] LABS: ALANINE AMINOTRANSFERASE 15 U/L (9-52); ALBUMIN 4.8 g/dL (3.5-5.0); ALKALINE PHOSPHATASE 74 U/L (38-126); ANION GAP 12 (5-19); ASPARTATE AMINO TRANSFERASE 14 U/L (14-36); BILIRUBIN,DIRECT 0.4 mg/dL (0.0-0.4); BILIRUBIN,TOTAL 0.4 mg/dL (0.2-1.3); BLOOD UREA NITROGEN 17 mg/dL (7-20); CALCIUM 10.2 mg/dL (8.4-10.2); CARBON DIOXIDE 23 mmol/L (22-30); CHLORIDE 109 mmol/L (98-107); GLUCOSE 115 mg/dL (75-110); POTASSIUM 4.6 mmol/L (3.6-5.0); SODIUM 143.5 mmol/L (137-145); TOTAL PROTEIN 8.3 g/dL (6.3-8.2)
== END 2017-10-31 00:18 | disposition left against medical advice (07) ==
LOC: ER 22:41
DX: R11.0 Nausea (principal); I10 Essential (primary) hypertension; E11.9 Type 2 diabetes mellitus without complications
CPT/HCPCS: 36415; 80053; 81001; 85025; 99281

== ENCOUNTER 2018-08-02 08:17 | Emergency (ER) | payer OTHER ==
[2018-08-02 08:25] VITALS: BP 99/62
[2018-08-02] MEDS ORDERED: LIDOCAINE 1% INJ-PF (10 MG/ML) 30 ML SDV INJ ONE (09:49)
[2018-08-02] MEDS ORDERED: DIPH/PERTUSS(ACELL)/TETANUS VAC/PF 0.5 ML SYR (>=10YO) IM ONE (09:49)
--- NOTE | 2018-08-02 10:23 | RADIOLOGY REPORT (SQ) ---
EXAM DESCRIPTION: HAND RIGHT 3 VIEWS COMPLETED DATE/TIME: 08/02/2018 10:10 am REASON FOR STUDY: bitten by pitbull COMPARISON: None. EXAM PARAMETERS: NUMBER OF VIEWS: Three views. TECHNIQUE: AP, lateral and oblique radiographic images acquired of the right hand. LIMITATIONS: None. FINDINGS: MINERALIZATION: Normal. BONES: No acute fracture or dislocation. No worrisome bone lesions. JOINTS: No effusions. SOFT TISSUES: Diffuse swelling. No foreign body. OTHER: No other significant finding. IMPRESSION: No fracture or foreign body. TECHNICAL DOCUMENTATION: JOB ID: [id number] [employer]- All Rights Reserved Reading location - IP/workstation name: [email or web address]
--- NOTE | 2018-08-02 11:06 | ER Document Report ---
Entered by GYPSY SINHA SCRIBE 08/02/18 0939 Acting as scribe for:BRIANNA MOSQUEDA DO ED Animal Bite <TONNY CORTES - Last Filed: 08/02/18 11:36> - General Mode of Arrival: Ambulatory TRAVEL OUTSIDE OF THE [place] IN LAST 30 DAYS: No <BRIANNA MOSQUEDA - Last Filed: 08/02/18 16:46> - General Chief Complaint: Dog Bite Stated Complaint: DOG BITE Time Seen by Provider: 08/02/18 09:13 Primary Care Provider: GEOFF SANCHEZ DO [Primary Care Provider] - Follow up as needed Notes: 53-year-old female that presents to the emergency department today with complaints of a dog bite that occurred just prior to arrival. Patient was going to visit a friend, knocked on the door, and a pitbull came rushing out. The dog attacked the patient and she has puncture wounds to her bilateral lower extremities as well as a bite trina and puncture wound to her left wrist. Patient denies any other injuries. (GYPSY SINHA) 53-year-old female that presents to the emergency department today with complaints of a dog bite that occurred just prior to arrival. Patient was going to visit a friend, knocked on the door, and a pitbull came rushing out. The dog attacked the patient and she has puncture wounds to her bilateral lower extremities as well as a bite trina and puncture wound to her left wrist. Patient denies any other injuries. (BRIANNA MOSQUEDA) - Related Data Allergies/Adverse Reactions: No Known Allergies Allergy (Verified 08/02/18 08:21) Past Medical History - General Information source: Patient - Social History Smoking Status: Current Every Day Smoker Cigarette use (# per day): Yes Chew tobacco use (# tins/day): No Frequency of alcohol use: None Drug Abuse: None Lives with: Family Family History: Arthritis, Malignancy, CAD, DM, Hyperlipidemia, Hypertension Patient has suicidal ideation: No Patient has homicidal ideation: No - Past Medical History Cardiac Medical History: Reports: Hx Hypertension Pulmonary Medical History: Reports: Hx Asthma - Pt denies 08/2017, Hx Bronchitis, Hx COPD Endocrine Medical History: Reports: Hx Diabetes Mellitus Type 2 Musculoskeletal Medical History: Reports Hx Arthritis - DJD and arthritis in back , Reports Hx Musculoskeletal Deformity, Reports Hx Musculoskeletal Trauma Psychiatric Medical History: Reports: Hx Anxiety Traumatic Medical History: Reports: Hx Fractures - Right ankle and fingers Past Surgical History: Reports: Hx Section - Immunizations Hx Diphtheria, Pertussis, Tetanus Vaccination: Yes - "It's been a while" <BRIANNA MOSQUEDA - Last Filed: 08/02/18 16:46> Review of Systems - Review of Systems Constitutional: No symptoms reported EENT: No symptoms reported Cardiovascular: No symptoms reported Respiratory: No symptoms reported Gastrointestinal: No symptoms reported Genitourinary: No symptoms reported Female Genitourinary: No symptoms reported Musculoskeletal: No symptoms reported Skin: See HPI, Other - dog bite Hematologic/Lymphatic: No symptoms reported Neurological/Psychological: No symptoms reported -: Yes All other systems reviewed and negative <BRIANNA MOSQUEDA - Last Filed: 08/02/18 16:46> Physical Exam <BRIANNA MOSQUEDA - Last Filed: 08/02/18 16:46> - Vital signs Vitals: Temp Pulse Resp BP Pulse Ox 97.8 F 87 16 99/62 L 96 08/02/18 08:24 08/02/18 08:24 08/02/18 08:24 08/02/18 08:24 08/02/18 08:24 - Notes Notes: PHYSICAL EXAM GENERAL: Alert, interacts well. No acute distress. HEAD: Normocephalic, atraumatic. EYES: Pupils equal, round, and reactive to light. Extraocular movements intact. ENT: Oral mucosa moist, tongue midline. NECK: Full range of motion. Supple. Trachea midline. LUNGS: No respiratory distress. HEART: Regular rate and rhythm. No murmurs, gallops, or rubs. ABDOMEN: Soft, non-tender. Non-distended. Bowel sounds present in all 4 quadrants. No guarding, rigidity, or rebound. EXTREMITIES: Moves all 4 extremities spontaneously. No edema, radial and dorsalis pedis pulses 2/4 bilaterally. No cyanosis. Surgical boot in LLE. NEUROLOGICAL: Alert and oriented x3. Normal speech. PSYCH: Normal affect, normal mood. SKIN: Warm, dry, normal turgor. Puncture wound 2/[address] up the right lateral calf. Second puncture wound 2/[address] up the right anterior tibia. 1cm laceration over the dorsal left arm just proximal to the wrist. Small puncture wound with subcutaneous fat to left proximal wrist. Multiple superficial abrasions over distal radius. (GYPSY SINHA) PHYSICAL EXAM GENERAL: Alert, interacts well. No acute distress. HEAD: Normocephalic, atraumatic. EYES: Pupils equal, round, and reactive to light. Extraocular movements intact. ENT: Oral mucosa moist, tongue midline. NECK: Full range of motion. Supple. Trachea midline. LUNGS: No respiratory distress. HEART: Regular rate and rhythm. No murmurs, gallops, or rubs. ABDOMEN: Soft, non-tender. Non-distended. Bowel sounds present in all 4 quadrants. No guarding, rigidity, or rebound. EXTREMITIES: Moves all 4 extremities spontaneously. No edema, radial and dorsalis pedis pulses 2/4 bilaterally. No cyanosis. Surgical boot in LLE. NEUROLOGICAL: Alert and oriented x3. Normal speech. PSYCH: Normal affect, normal mood. SKIN: Warm, dry, normal turgor. Puncture wound 2/[address] up the right lateral calf. Second puncture wound 2/[address] up the left anterior tibia. 1cm laceration that is non-gaping and superficial over the dorsal left arm just proximal to the wrist. Small puncture wound with subcutaneous fat to left proximal wrist. Multiple superficial abrasions over distal radius. (BRIANNA MOSQUEDA) Course <BRIANNA MOSQUEDA - Last Filed: 08/02/18 16:46> - Re-evaluation Re-evalutation: 08/02/18 11:04 X-ray of the right hand does not reveal any fracture or foreign body. Nurse practitioner Tonny Cortes will repair the flap shaped gaping laceration to the volar aspect of the right wrist with a single corner stitch and leave loosely approximated. See her note for details. Patient then started on Augmentin and discharged to home. Should return in 7 days to have the stitches removed. (GYPSY SINHA) 08/02/18 11:04 X-ray of the right hand does not reveal any fracture or foreign body. Nurse practitioner Tonny Cortes will repair the flap shaped gaping laceration to the volar aspect of the right wrist with a single corner stitch and leave loosely approximated. See her note for details. Patient then started on Augmentin and discharged to home. Should return in 7 days to have the stitches removed. (BRIANNA MOSQUEDA) - Vital Signs Vital signs: Temp Pulse Resp BP Pulse Ox 97.8 F 87 16 99/62 L 96 08/02/18 08:24 08/02/18 08:24 08/02/18 08:24 08/02/18 08:24 08/02/18 08:24 Procedures - Laceration/Wound Repair Right Volar Wrist Time completed: 11:25 Wound length (cm): 3 - V shaped laceration with flap, 1.5 cm on each side Wound's Depth, Shape: Irregular, Flap Laceration pre-procedure: Sterile PPE donned, Sterile drapes applied, Shur-Clens applied Anesthetic type: 1% Lidocaine Volume Anesthetic (mLs): 3 Wound explored: Clean Irrigated w/ Saline (mLs): 100 Wound Repaired With: Sutures Suture Size/Type: 5:0, Ethilon Number of Sutures: 1 Post-procedure wound care: Sterile dressing applied Post-procedure NV exam normal: Yes Complications: No <TONNY CORTES - Last Filed: 08/02/18 11:36> - Laceration/Wound Repair Right Volar Wrist Notes: 08/02/18 11:36 Loose corner stitch x 1 (TONNY CORTES) Discharge <TONNY CORTES - Last Filed: 08/02/18 11:36> <BRIANNA MOSQUEDA - Last Filed: 08/02/18 16:46> - Discharge Clinical Impression: Dog bite of right wrist Qualifiers: Encounter type: initial encounter Qualified Code(s): S61.551A - Open bite of right wrist, initial encounter Laceration of right wrist Qualifiers: Encounter type: initial encounter Qualified Code(s): S61.511A - Laceration without foreign body of right wrist, initial encounter Condition: Stable Disposition: HOME, SELF-CARE Additional Instructions: Animal Bites Animal bites are often heavily contaminated with bacteria. In spite of thorough cleansing and proper treatment, these wounds frequently become infected. Bite wounds of the hands are especially prone to complications. Bites are dressed, if possible. Large wounds may require suturing after internal cleansing. Because of infection risk, some large wounds must remain unstitched. Your doctor is trained to advise you on the best treatment for your bite. Call the doctor at once if the wound becomes red, swollen, warm, increasingly painful, or if it begins to drain. Danger signs also include red streaks up the involved extremity, swollen glands in the groin or under the arm, or fever and chills. The risk of rabies from domestic animals is very low. Bats, sick animals, and wild animals may expose you to rabies. At this time you do not need the rabies vaccination. The health department will contact you if they decide you do need the rabies vaccine. Please have the suture removed in 7 days. Prescriptions: Amox Tr/Potassium Clavulanate [Augmentin 875-125 Tablet] 1 tab PO BID 7 Days tablet Referrals: GEOFF SANCHEZ, DO [Primary Care Provider] - Follow up as needed I personally performed the services described in the documentation, reviewed and edited the documentation which was dictated to the scribe in my presence, and it accurately records my words and actions.
== END 2018-08-02 11:33 | disposition home or self-care (01) ==
LOC: ER 08:17
PROC: 0HQDXZZ Repair Right Lower Arm Skin, External Approach (ICD-10-PCS; principal; 2018-08-02)
DX: S81.852A Open bite, left lower leg, initial encounter (principal); S81.851A Open bite, right lower leg, initial encounter; S61.552A Open bite of left wrist, initial encounter; W54.0XXA Bitten by dog, initial encounter; F17.200 Nicotine dependence, unspecified, uncomplicated; I10 Essential (primary) hypertension; E11.9 Type 2 diabetes mellitus without complications
CPT/HCPCS: 99283; 90471; 73130; 90715; 12002; J3490

== ENCOUNTER 2018-11-13 20:56 | Emergency (ER) | payer OTHER ==
--- NOTE | 2018-11-13 22:36 | ER Document Report ---
ED Medical Screen (RME) - General Chief Complaint: Back Pain Stated Complaint: DIFFICULTY SWALLOWING Time Seen by Provider: 11/13/18 22:30 Primary Care Provider: GEOFF SANCHEZ DO [Primary Care Provider] - Follow up as needed TRAVEL OUTSIDE OF THE [place] IN LAST 30 DAYS: No - HPI Notes: 11/13/18 22:30 53-year-old female with a history of sciatica presents complaining of lower back pain radiating into her buttocks and bilateral lower extremities. Patient denies change in bowel or bladder habits. Patient states that she is also having trouble for the past 3 days with swallowing solids. 11/13/18 22:34 I have treated and performed a rapid initial assessment of this patient. [place] to the ED assessment and evaluation of the patient, analysis of the test results, and completion of medical decision making process will be conducted by additional ED providers. - Related Data Allergies/Adverse Reactions: No Known Allergies Allergy (Verified 08/02/18 08:21) Past Medical History - Social History Chew tobacco use (# tins/day): No Drug Abuse: None - Past Medical History Cardiac Medical History: Reports: Hx Hypertension Denies: Hx Coronary Artery Disease, Hx Heart Attack Pulmonary Medical History: Reports: Hx Asthma - Pt denies 08/2017, Hx Bronchitis, Hx COPD Denies: Hx Pneumonia Neurological Medical History: Denies: Hx Cerebrovascular Accident, Hx Seizures Endocrine Medical History: Reports: Hx Diabetes Mellitus Type 2 Renal/ Medical History: Denies: Hx Peritoneal Dialysis Musculoskeltal Medical History: Reports Hx Arthritis - DJD and arthritis in back , Reports Hx Musculoskeletal Deformity, Reports Hx Musculoskeletal Trauma Psychiatric Medical History: Reports: Hx Anxiety Traumatic Medical History: Reports: Hx Fractures - Right ankle and fingers Past Surgical History: Reports: Hx Section - Immunizations Hx Diphtheria, Pertussis, Tetanus Vaccination: Yes - "It's been a while" History of Influenza Vaccine for 11/2016 - 04/2017 Season: No Physical Exam - Vital signs Vitals: Temp Pulse Resp BP 98.2 F 93 18 133/88 H 11/13/18 21:35 11/13/18 21:35 11/13/18 21:35 11/13/18 21:35 - General In distress: None - Respiratory Respiratory status: No respiratory distress - Cardiovascular Rhythm: Regular - Extremities Notes: Patient is sitting in wheelchair with legs crossed. Course - Vital Signs Vital signs: Temp Pulse Resp BP Pulse Ox 98.2 F 93 18 133/88 H 11/13/18 21:35 11/13/18 21:35 11/13/18 21:35 11/13/18 21:35 Doctor's Discharge - Discharge Referrals: GEOFF SANCHEZ DO [Primary Care Provider] - Follow up as needed
[2018-11-13] MEDS ORDERED: KETOROLAC TROMETHAMINE 60 MG/2 ML SDV IM ONE (23:52)
[2018-11-13] MEDS ORDERED: METHOCARBAMOL 750 MG TABLET PO ONE (23:53)
[2018-11-13] MEDS ORDERED: LIDOCAINE 5% (700 MG) TRANSDERMAL ADH..PATCH TP ONE (23:54)
--- NOTE | 2018-11-14 00:18 | ER Document Report ---
HPI - HPI Patient complains to provider of: back pain Time Seen by Provider: 11/13/18 22:30 Pain Level: 5 Context: [facility] NOTE: 53-year-old female with a history of sciatica presents complaining of lower back pain radiating into her buttocks and bilateral lower extremities. Patient denies change in bowel or bladder habits. Patient states that she is also having trouble for the past 3 days with swallowing solids. MY HPI: Patient is a 53-year-old female who typically sees Dr. Alex for chronic pain. States she typically uses fentanyl patches. States she has not been on fentanyl patches for the last week because last time she tried to pick them up at the pharmacy they told her she needed prior authorization. Patient states she has not followed up with Dr. Alex, presents to the emergency department with an exacerbation of her chronic back pain radiating into both legs. Patient voices she does have a history of sciatica. Patient's denying any urinary retention, loss of bowel or bladder. Patient also voiced to RME provider that she was having trouble swallowing solids for the last 3 days. Upon my arrival to the room patient is drinking water with no distress. Patient also has what appears to be only her back teeth. Patient denies having dentures. Patient's denying numbness or tingling in any extremity. - REPRODUCTIVE Reproductive: DENIES: : Past Medical History - General Information source: Patient - Social History Smoking Status: Current Every Day Smoker Chew tobacco use (# tins/day): No Drug Abuse: None Family History: Arthritis, Malignancy, CAD, DM, Hyperlipidemia, Hypertension Patient has suicidal ideation: No Patient has homicidal ideation: No - Past Medical History Cardiac Medical History: Reports: Hx Hypertension Denies: Hx Coronary Artery Disease, Hx Heart Attack Pulmonary Medical History: Reports: Hx Asthma - Pt denies 08/2017, Hx Bronchitis, Hx COPD Denies: Hx Pneumonia Neurological Medical History: Denies: Hx Cerebrovascular Accident, Hx Seizures Endocrine Medical History: Reports: Hx Diabetes Mellitus Type 2 Renal/ Medical History: Denies: Hx Peritoneal Dialysis Musculoskeletal Medical History: Reports Hx Arthritis - DJD and arthritis in back , Reports Hx Musculoskeletal Deformity, Reports Hx Musculoskeletal Trauma Psychiatric Medical History: Reports: Hx Anxiety Traumatic Medical History: Reports: Hx Fractures - Right ankle and fingers Past Surgical History: Reports: Hx Section - Immunizations Hx Diphtheria, Pertussis, Tetanus Vaccination: Yes - "It's been a while" Vertical Provider Document - CONSTITUTIONAL Agree With Documented VS: Yes Notes: GENERAL: Alert, interacts well. No acute distress. HEAD: Normocephalic, atraumatic. EYES: Pupils equal, round, and reactive to light. Extraocular movements intact. ENT: Oral mucosa moist, tongue midline. NECK: Full range of motion. Supple. Trachea midline. LUNGS: Clear to auscultation bilaterally, no wheezes, rales, or rhonchi. No respiratory distress. HEART: Regular rate and rhythm. No murmur ABDOMEN: Soft, non-tender. Non-distended. Bowel sounds present in all 4 quadrants. EXTREMITIES: Moves all 4 extremities spontaneously. No edema, normal radial and dorsalis pedis pulses bilaterally. No cyanosis. 5/5 strength noted all 4 extremities. BACK: no cervical, thoracic, lumbar midline tenderness. No saddle anesthesia, normal distal neurovascular exam. Generalized paraspinal lumbar pain noted radiating into bilateral buttocks. NEUROLOGICAL: Alert and oriented x3. Normal speech. cranial nerves II through XII grossly intact. PSYCH: Normal affect, normal mood. SKIN: Warm, dry, normal turgor. No rashes or lesions noted. - INFECTION CONTROL TRAVEL OUTSIDE OF THE [place] IN LAST 30 DAYS: No Course - Re-evaluation Re-evalutation: Presentation of a well appearing patient complaining of acute on chronic back pain following being out of fentanyl patches for a week. No rapid progression of symptoms, systemic symptoms including fevers, chills, weight loss, history of recent bacterial infection, bilateral symptoms, numbness, weakness, difficulty walking, urinary retention or bowel incontinence, personal history of cancer, immunosuppression, diabetes, known AAA, or history of IV drug use. Exam is without point tenderness over vertebral bodies, pulsatile abdominal mass, and patient has symmetric and intact lower extremity strength, sensation, and reflexes without clonus. 2+ symmetric medial malleolar and dorsalis pedis pulses Based on history and physical, I have a very low suspicion of a concerning etiology of pain including epidural compression syndrome, spinal infection, transverse myelitis, malignancy, abdominal aortic aneurysm, renal colic, acute lower extremity claudication, neurogenic claudication, ankylosing spondylitis, or other intra-abdominal process. Due to absence of concerning risk factors in history and physical as well as absence of rapidly progressive, severe, or bilateral symptoms, will defer imaging at this point. Discussed with patient at length she needs to follow-up with Dr. Alex to continue her pain management. - Vital Signs Vital signs: Temp Pulse Resp BP Pulse Ox 98.2 F 93 18 133/88 H 11/13/18 21:35 11/13/18 21:35 11/13/18 21:35 11/13/18 21:35 Discharge - Discharge Clinical Impression: Sciatic nerve pain Qualifiers: Laterality: unspecified laterality Qualified Code(s): M54.30 - Sciatica, unspecified side Condition: Stable Disposition: HOME, SELF-CARE Instructions: Low Back Pain ([facility]), Warm Packs ([facility]) Additional Instructions: As we discussed you have been seen and treated in the emergency department for your chronic lower back pain. Please make sure you follow-up with Dr. Alex for continued care and evaluation of this pain. Please try to drink plenty of water, Gatorade, Pedialyte. Please stay well-hydrated. Please follow-up with your primary care provider in the next 24 to 48 hours. Return to the emergency room for any concerns. Prescriptions: Methocarbamol [Robaxin-750] 750 mg PO QID #20 tablet Referrals: GEOFF ALEX DO [Primary Care Provider] - Follow up as needed
[2018-11-14 01:07] VITALS: BP 113/75
== END 2018-11-14 01:07 | disposition home or self-care (01) ==
LOC: ER 20:56
DX: M54.30 Sciatica, unspecified side (principal); M54.5 Low back pain; F17.200 Nicotine dependence, unspecified, uncomplicated; I10 Essential (primary) hypertension; E11.9 Type 2 diabetes mellitus without complications
CPT/HCPCS: J1885; J3490

== ENCOUNTER → 2019-06-05 | Outpatient (CLI) | payer OTHER ==
[2019-06-05 12:43] LABS: ABSOLUTE BASOPHILS # (AUTO) 0.1 10^3/uL (0.0-0.2); ABSOLUTE EOSINOPHILS # (AUTO) 0.2 10^3/uL (0.0-0.6); ABSOLUTE LYMPHOCYTES (AUTO) 2.1 10^3/uL (0.5-4.7); ABSOLUTE MONOCYTES (AUTO) 0.9 10^3/uL (0.1-1.4); BASOPHILS % (AUTO) 0.8 % (0-2); EOSINOPHILS % (AUTO) 3.4 % (0-6); HEMATOCRIT 44.4 % (36.0-47.0); HEMOGLOBIN 15.1 g/dL (12.0-15.5); LYMPHOCYTES % (AUTO) 28.8 % (13-45); MEAN CORPUSCULAR VOLUME 91 fl (80-97); MONOCYTES % (AUTO) 12.2 % (3-13); PLATELET COUNT 320 10^3/uL (150-450); RED BLOOD COUNT 4.86 10^6/uL (3.72-5.28); RED CELL DISTRIBUTION WIDTH 14.4 % (11.5-14.0); SEGMENTED NEUTROPHILS % (AUTO) 54.8 % (42-78); TOTAL CELLS COUNTED % (AUTO) 100 %; WHITE BLOOD COUNT 7.3 10^3/uL (4.0-10.5)
[2019-06-05 12:58] LABS: ALBUMIN 4.7 g/dL (3.5-5.0); ALKALINE PHOSPHATASE 108 U/L (38-126); ANION GAP 9 (5-19); ASPARTATE AMINO TRANSFERASE 16 U/L (14-36); BILIRUBIN,DIRECT 0.1 mg/dL (0.0-0.4); BILIRUBIN,TOTAL 0.4 mg/dL (0.2-1.3); BLOOD UREA NITROGEN 28 mg/dL (7-20); CALCIUM 9.9 mg/dL (8.4-10.2); CARBON DIOXIDE 29 mmol/L (22-30); CHLORIDE 99 mmol/L (98-107); CHOLESTEROL 264.17 mg/dL (0-200); GLUCOSE 94 mg/dL (75-110); IRON(TIBC) 90.6 ug/dL (37-170); POTASSIUM 4.9 mmol/L (3.6-5.0); TOTAL PROTEIN 7.7 g/dL (6.3-8.2); TRIGLYCERIDES 284 mg/dL (<150)
[2019-06-05 13:09] LABS: DIRECT LDL 182 mg/dL (<100)
[2019-06-05 13:37] LABS: VLDL CHOLESTEROL 56.8 mg/dL (10-31)
== END ==
LOC: OD 11:39
PROVIDERS: ATTEND Family Medicine
DX: D50.9 Iron deficiency anemia, unspecified (principal); E55.9 Vitamin D deficiency, unspecified; E78.5 Hyperlipidemia, unspecified; I10 Essential (primary) hypertension
CPT/HCPCS: 36415; 80053; 80061; 82306; 82728; 83036; 83540; 83550; 84443; 85025